=== PATIENT | male | born 1990 | race Caucasian/White ===

== ENCOUNTER 2019-01-25 22:48 | Emergency (ER) | payer BC, OTHER ==
[~2019-01-25] VITALS: Ht 193 cm; Wt 93.9 kg
[2019-01-25] MEDS ORDERED: CYCLOBENZAPRINE 10 MG (FLEXERIL) TAB PO STA (23:11)
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
[2019-01-25] MEDS ORDERED: CYCL10TA9 PO (23:41)
[2019-01-25 23:51] VITALS: BP 119/64
--- NOTE | 2019-01-26 07:39 | Diagnostic Imaging Report ---
INDICATION: Pain. Three views were obtained. FINDINGS: There is an oblique fracture through the distal right clavicle. This extends horizontally into the AC joint. The glenohumeral joint is unremarkable. Right lung is clear. Soft tissues are unremarkable. IMPRESSION: Oblique fracture through the distal right clavicle which appears to extend into the AC joint. This is slightly displaced. Dictated by: Dictated on workstation # [id number]
--- NOTE | 2019-01-27 15:33 | NUR ---
SPOKE WITH PT. CONCERNING RADIOLOGY REPORT OF R-CLAVICLE. REITERATED TO PATIENT TO SEEK CARE IF WORSENING PAIN. PT. STATED HE DOES NOT HAVE ANY PAIN BUT STATES IT IS ACTUALLY FEELING BETTER. PT. ALSO ADVISED TO SEEK PCP IF MORE CONCERNS. PT. VERBALIZED UNDERSTANDING AND DENIES NEEDS AT THIS TIME.
== END 2019-01-25 23:51 | disposition home or self-care (01) ==
LOC: ER FS 22:53
DX: S43.004A Unspecified dislocation of right shoulder joint, initial encounter (principal); R40.2142 Coma scale, eyes open, spontaneous, at arrival to emergency department; R40.2252 Coma scale, best verbal response, oriented, at arrival to emergency department; R40.2362 Coma scale, best motor response, obeys commands, at arrival to emergency department; Z88.0 Allergy status to penicillin; V68.5XXA Driver of heavy transport vehicle injured in noncollision transport accident in traffic accident, initial encounter
CPT/HCPCS: 73030

== ENCOUNTER → 2023-05-15 | Outpatient (CLI) | payer BC ==
[~2023-05-15] MED LIST: CYCL10TA25 PO; IBUP-1780 PO; ONDA4TAB11 PO
--- NOTE | 2023-05-15 11:59 | Diagnostic Imaging Report ---
PROCEDURE: US Gallbladder. TECHNIQUE: Multiple real-time grayscale images were obtained over the right upper quadrant in various projections. INDICATION: Right upper quadrant pain. COMPARISON: CT abdomen pelvis from earlier same day FINDINGS: The liver is normal in size and echogenicity. There is no focal hepatic mass. The main portal vein is patent with antegrade flow. A mobile gallstone is present. No gallbladder wall thickening or pericholecystic fluid. The common bile duct measures up to 0.5 cm in diameter. No intrahepatic biliary dilation. The visualized portions of the pancreas are normal. Portions of the head and tail are obscured by overlying bowel gas. The right kidney is normal in size. No hydronephrosis, shadowing calculi, or suspicious mass lesion. IMPRESSION: 1. Cholelithiasis. No sonographic features of acute cholecystitis. 2. No biliary obstruction. Dictated by: Dictated on workstation # [id number]
== END ==
LOC: RAD FS 09:03
PROVIDERS: ATTEND Family Medicine
DX: K80.20 Calculus of gallbladder without cholecystitis without obstruction (principal); R11.2 Nausea with vomiting, unspecified
CPT/HCPCS: 76705